=== PATIENT | male | born 1955 | race Caucasian/White ===

== ENCOUNTER 2020-07-21 19:42 | Emergency (ER) | payer MEDICAID ==
[~2020-07-21] VITALS: Ht 177.8 cm; Wt 136.1 kg
[2020-07-21] MEDS ORDERED: ONDANSETRON HCL 4 MG/2 ML VIAL IV ONE (20:45)
[2020-07-21] MEDS ORDERED: MORPHINE SULFATE 4 MG/ML SYR/VIAL IV ONE ×2 (21:15)
[2020-07-21 22:22] LABS: Basophils # (auto) 0 10 ^3/uL (0-0.2); Basophils % (auto) 0.1 % (0.0-2.0); Eosinophils # (auto) 0 10 ^3/uL (0-0.8); Eosinophils % (auto) 0.1 % (0.0-7.0); Hematocrit 51.5 % (41.0-53.0); Hemoglobin 17.3 g/dL (13.5-17.5); Lymphocytes # (auto) 1.3 10 ^3/uL (0.4-5.4); Lymphocytes % (auto) 8.9 % (10.0-50.0); Mean Corpuscular Hemoglobin 30.8 pg (28.0-32.0); Mean Corpuscular Hgb Conc. 33.5 g/dL (32.0-36.0); Mean Corpuscular Volume 91.9 fL (80.0-100.0); Monocytes # (auto) 0.9 10 ^3/uL (0-1.3); Monocytes % (auto) 6.1 % (0.0-12.0); Neutrophils # (auto) 12.3 10 ^3/uL (1.6-8.6); Neutrophils % (auto) 84.8 % (37.0-80.0); Nucleated Red Blood Cells % 0.3 %; Platelet Count (auto) 168 10^3/uL (140-450); Red Cell Distribution Width 14.4 % (11.8-14.3); White Blood Cell 14.5 10^3/uL (4.4-10.8)
[2020-07-21 22:39] LABS: INR 1.12 (0.9-1.15); Partial Thromboplastin Time 25.6 sec (23.0-31.2)
[2020-07-21 22:40] LABS: Chloride 103 mmol/L (98-107); Potassium 4.2 mmol/L (3.5-5.1); Sodium 138 mmol/L (136-145)
[2020-07-21] MEDS ORDERED: HYDROmorphone HCL 2 MG/ML VL IV ONE ×2 (22:45→23:30)
[2020-07-21 23:03] LABS: Alanine Aminotransferase 61 U/L (16-61); Albumin 3.9 g/dL (3.4-5.0); Alkaline Phosphatase 63 U/L (45-117); Anion Gap 8 (5-15); Aspartate Aminotransferase 43 U/L (15-37); BUN/Creatinine Ratio 14.9; Bilirubin, Total 1.3 mg/dL (0.2-1.0); Blood Urea Nitrogen 21 mg/dL (7-18); Calcium 9.4 mg/dL (8.5-10.1); Carbon Dioxide 27 mmol/L (21-32); Creatine Kinase IFCC 740 U/L (39-308); GFR African American 65 mL/min; GFR Non-African American 54 mL/min; Glucose 115 mg/dL (74-106); Magnesium 2.2 mg/dL (1.6-2.6); Total Protein 8.3 g/dL (6.4-8.2)
[2020-07-21] MEDS ORDERED: HYDROmorphone HCL 2 MG/ML VL ONE (23:17)
[2020-07-21 23:28] VITALS: BP 110/64
== END 2020-07-21 23:45 | disposition short-term general hospital (02) ==
LOC: EDBD 19:42 → ER 20:04
DX: S72.351A Displaced comminuted fracture of shaft of right femur, initial encounter for closed fracture (principal); E11.9 Type 2 diabetes mellitus without complications; J44.9 Chronic obstructive pulmonary disease, unspecified; W19.XXXA Unspecified fall, initial encounter; Y93.89 Activity, other specified; Y92.89 Other specified places as the place of occurrence of the external cause; Y99.8 Other external cause status
CPT/HCPCS: 36415; 71045; 73552; 80053; 82550; 83735; 83880; 84443; 84484; 85025; 85379; 85610; 85730; 93005; 96374; 96375; 96376; 99285; J1170; J2270; J2405